=== PATIENT | male | born 2005 | race Asian ===

== ENCOUNTER 2025-07-02 13:33 | Emergency (ER) | payer OTHER ==
[2025-07-02 14:39] LABS: Glucose, Urine (Dipstick) >=1000 mg/dL (Negative); Leukocyte Negative (Negative); Protein, Urine (Dipstick) 100 mg/dl (Neg-Trace); Specific Gravity, Urine 1.010 (1.005-1.030)
[2025-07-02 14:47] LABS: Cocaine Metabolite Screen Negative (Negative); THC/Cannabinoid Screen Negative (Negative); Tricyclic Screen Negative (Negative)
[2025-07-02 14:50] LABS: Bacteria/HPF 1+ HPF (None Seen); CAUTI Indications for Culture Pelvic or flank pain; RBC/HPF None Seen HPF (0-3); WBC/HPF 0-3 HPF (0-3)
[2025-07-02 14:51] LABS: Urine Culture Reflex No No
[2025-07-02 16:03] LABS: Hematocrit 41.4 % (38.8-50.0); Hemoglobin 12.7 g/dL (13.5-17.5); Mean Corpuscular Hemoglobin 21.4 pg (27.0-33.0); Mean Corpuscular Volume 69.8 fL (81.2-95.1); Platelet Count 378 10x3/uL (150-450); Red Blood Cell (RBC) Count 5.93 10x6/uL (4.32-5.72); White Blood Cell (WBC) Count 6.52 10x3/uL (3.5-10.5)
[2025-07-02 16:08] LABS: ALT (SGPT) 16 U/L (Less than 45); AST (SGOT) 24 U/L (11-34); Albumin 4.4 g/dL (3.1-4.5); Alkaline Phosphatase 95 U/L (40-110); Anion Gap 15 mmol/L (10-20); BUN (Urea Nitrogen) 13 mg/dL (8.9-20.6); Bilirubin, Total 1.1 mg/dL (0.3-1.2); Calc. Creatinine Clearance 0 mL/min (70-130); Calcium 9.4 mg/dL (7.8-10.44); Carbon Dioxide 26 mmol/L (22-29); Chloride 105 mmol/L (98-107); Globulin 2.9 g/dL (2.4-3.5); Glucose 115 mg/dL (70-105); Magnesium 1.9 mg/dL (1.6-2.6); Potassium 4.5 mmol/L (3.5-5.1); Sodium 141 mmol/L (136-145)
[2025-07-02 16:09] LABS: Acetaminophen Less than 10 mcg/mL (Less than 10); Salicylate Less than 8.0 mg/dL (Less than 8.0)
[2025-07-02 16:22] LABS: #Basophils 0.07 10x3/uL (0.0-0.2); #Eosinophils 0.03 10x3/uL (0.0-0.5); #Monocytes 0.40 10x3/uL (0.0-1.1); #Neutrophils 4.81 10x3/uL (1.5-8.4); %Basophils 1.1 % (0.0-2.0); %Eosinophils 0.5 % (0.0-6.0); %Lymphocytes 18.4 % (18.0-47.0); %Monocytes 6.1 % (0.0-10.0); %Neutrophils 73.7 % (40.0-75.0); Anisocytosis SLIGHT = 6-15 cells (100X) (0-5/hpf); MDiff Complete? YES; Microcytosis MODERATE=15-30 cells (100X) (0-5/hpf); Ovalocytes SLIGHT = 2-5 cells (100X) (0-1/hpf); Platelet Adequacy Comment Appears Adequate
== END 2025-07-02 22:45 | disposition home or self-care (01) ==
LOC: CSHERS 13:33
DX: R20.0 Anesthesia of skin (principal); E10.9 Type 1 diabetes mellitus without complications; R29.700 NIHSS score 0
CPT/HCPCS: 36415; 70450; 70553; 72156; 80053; 80306; 80307; 81001; 83735; 85025; 93005

== ENCOUNTER 2025-07-05 11:49 | Emergency (ER) | payer OTHER ==
[2025-07-05 14:12] LABS: Hematocrit 42.3 % (38.8-50.0); Hemoglobin 13.0 g/dL (13.5-17.5); Mean Corpuscular Hemoglobin 21.5 pg (27.0-33.0); Mean Corpuscular Volume 69.8 fL (81.2-95.1); Red Blood Cell (RBC) Count 6.06 10x6/uL (4.32-5.72); White Blood Cell (WBC) Count 6.21 10x3/uL (3.5-10.5)
[2025-07-05 14:13] LABS: #Basophils 0.06 10x3/uL (0.0-0.2); #Eosinophils Less than 0.03 10x3/uL (0.0-0.5); #Monocytes 0.29 10x3/uL (0.0-1.1); #Neutrophils 4.72 10x3/uL (1.5-8.4); %Basophils 1.0 % (0.0-2.0); %Eosinophils 0.3 % (0.0-6.0); %Lymphocytes 17.9 % (18.0-47.0); %Monocytes 4.7 % (0.0-10.0); %Neutrophils 75.9 % (40.0-75.0); Platelet Count 319 10x3/uL (150-450)
[2025-07-05 14:14] LABS: ALT (SGPT) 14 U/L (Less than 45); AST (SGOT) 24 U/L (11-34); Albumin 4.4 g/dL (3.1-4.5); Alkaline Phosphatase 92 U/L (40-110); Anion Gap 11 mmol/L (10-20); BUN (Urea Nitrogen) 12 mg/dL (8.9-20.6); Bilirubin, Total 0.8 mg/dL (0.3-1.2); Calc. Creatinine Clearance 0 mL/min (70-130); Calcium 9.2 mg/dL (7.8-10.44); Carbon Dioxide 27 mmol/L (22-29); Chloride 102 mmol/L (98-107); Globulin 3.1 g/dL (2.4-3.5); Glucose 345 mg/dL (70-105); Magnesium 1.8 mg/dL (1.6-2.6); Potassium 4.4 mmol/L (3.5-5.1); Sodium 136 mmol/L (136-145)
[2025-07-05 14:34] LABS: Microcytosis SLIGHT = 6-15 cells (100X) (0-5/hpf); Ovalocytes SLIGHT = 2-5 cells (100X) (0-1/hpf); Platelet Adequacy Comment Appears Adequate
== END 2025-07-05 23:27 | disposition short-term general hospital (02) ==
LOC: CSHERS 11:49
DX: R20.8 Other disturbances of skin sensation (principal); D64.9 Anemia, unspecified; E10.9 Type 1 diabetes mellitus without complications; Z75.3 Unavailability and inaccessibility of health-care facilities
CPT/HCPCS: 80053; 83735; 85025; 87428; 93005